=== PATIENT | female | born 1955 ===

== ENCOUNTER 2017-04-22 06:32 | Day surgery (SDC) | payer OTHER ==
[2017-04-22] MEDS ORDERED: Lactated Ringer's 1,000 ML IV ONE ×2 (07:47)
[2017-04-22] MEDS ORDERED: Propofol 10 mg/ml Inj (20 ML) ONE (08:00)
[2017-04-22] MEDS ORDERED: MethylPREDNISolone Depo 40 mg/ml Inj ONE (08:45)
[2017-04-22] MEDS ORDERED: Bupivacaine HCl 0.25% PF (10 ml) Inj ONE (08:45)
[2017-04-22] MEDS ORDERED: Iohexol 240 (50 ml) ONE (08:45)
[2017-04-22] MEDS ORDERED: Oxycodone/Acetaminophen 5/325 mg Tab PO ONE (11:00)
[2017-04-22 12:25] VITALS: BP 102/69; PULSE 79; RESP 18; TEMP 97.4; O2SAT 99
--- NOTE | 2017-04-22 17:17 | RAD ---
PROCEDURE: Intraoperative Fluoroscopy. HISTORY: SI JOINT INJECTION FINDINGS: Fluoroscopic assistance was provided for sacroiliac joint injection. fluoroscopic time (continuous mode) utilized during the procedure: 18.5 seconds
== END 2017-04-22 10:53 | disposition home or self-care (01) ==
LOC: C.SDS 06:32
PROVIDERS: ATTEND Anesthesiology Pain Medicine
DX: M46.1 Sacroiliitis, not elsewhere classified (principal); M53.3 Sacrococcygeal disorders, not elsewhere classified
CPT/HCPCS: 27096; J1030; J2704; J7120; Q9966

== ENCOUNTER 2017-07-15 06:16 | Day surgery (SDC) | payer OTHER ==
[2017-07-15] MEDS ORDERED: Propofol 10 mg/ml Inj (20 ML) ONE (08:02)
[2017-07-15] MEDS ORDERED: Midazolam 2 MG/2 ML VIAL ONE (08:02)
[2017-07-15] MEDS ORDERED: Bupivacaine HCl 0.25% PF (10 ml) Inj ONE (08:06)
[2017-07-15] MEDS ORDERED: Lidocaine Hydrochloride 5 ML INJ ONE (08:07)
[2017-07-15] MEDS: MethylPREDNISolone Depo 40 mg/ml Inj ONE ×2 (08:35→08:43)
[2017-07-15] MEDS ORDERED: Lactated Ringer's 1,000 ML IV ONE (08:45)
[2017-07-15] MEDS ORDERED: Iohexol 240 (50 ml) ONE (08:51)
[2017-07-15 09:14] VITALS: O2SAT 97
[2017-07-15 11:37] VITALS: BP 94/55; PULSE 85; RESP 16; TEMP 97.7
--- NOTE | 2017-07-15 15:26 | RAD ---
PROCEDURE: Fluoroscopy over 1 hour HISTORY: SACROILLITIS COMPARISON: None TECHNIQUE: Standard protocol for this study/examination. FINDINGS: Total fluoroscopic time (continuous mode) utilized during the procedure: 20.0 seconds. IMPRESSION: Total exam DLP: 0.06 mGy per meters squared
--- NOTE | 2017-07-16 07:45 | OP ---
PROCEDURE DATE: 07/15/2017 PREOPERATIVE DIAGNOSIS: Sacroiliitis. POSTOPERATIVE DIAGNOSIS: Sacroiliitis. PROCEDURE: Right sacroiliac joint injection under fluoroscopic guidance. ANESTHESIA: Local MAC sedation. SURGEON: Caroline Calhoun MD COMPLICATIONS: None. BLOOD LOSS: 1 mL. 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 The patient came here today for sacroiliac joint and intra-articular steroid injection under fluoroscopic guidance. PROCEDURE IN DETAIL: informed consent for the procedure, risks and benefits were explained. The patient was brought back to the procedure room, placed in prone position, routine monitors were applied. The patient was prepped and draped in sterile fashion. The patient's sacroiliac joint was imaged using fluoroscopy. A 27-gauge needle was used to inject lidocaine 1% subcutaneously at the inferomedial sacral joint line. Subsequently, a 22-gauge 3.5- inch spinal needle was advanced into the sacroiliac joint. Omnipaque dye, 1 mL, was injected showing good intra-articular spread. Subsequently, Depo-Medrol 40 mg mixed with 3 mL of preservative-free lidocaine 1% was injected with intermittent aspiration. No heme or CSF was aspirated throughout. No paresthesias were elicited throughout. The patient tolerated the procedure well. Vital signs remained stable. The patient reported reduction in sacroiliac joint pain postprocedure. DISPOSITION: The patient was given instructions to follow up in 2 weeks and discharged to postop area in stable condition. No events or complications. Caroline Calhoun MD
== END 2017-07-15 10:37 | disposition home or self-care (01) ==
LOC: C.SDS 06:16
PROVIDERS: ATTEND Anesthesiology Pain Medicine
DX: M46.1 Sacroiliitis, not elsewhere classified (principal)
CPT/HCPCS: 27096; J1030; J2250; J2704; J3010; J7120

== ENCOUNTER 2017-09-09 09:17 | Day surgery (SDC) | payer OTHER ==
[2017-09-08 09:18] VITALS: BMI 37.8
[~2017-09-09 09:17] MED LIST: Iohexol 240 (50 ml) ONE; Lidocaine Hydrochloride 5 ML INJ ONE
[2017-09-09] MEDS: Bupivacaine HCl 0.25% PF (10 ml) Inj ONE ×2 (10:38→11:13)
[2017-09-09] MEDS: MethylPREDNISolone Depo 40 mg/ml Inj ONE ×2 (10:39→11:13)
[2017-09-09] MEDS ORDERED: Propofol 10 mg/ml Inj (20 ML) ONE (11:07)
[2017-09-09] MEDS ORDERED: HYDROmorphone 0.5 mg/0.5 ml ISec IVP PRN (11:30)
--- NOTE | 2017-09-09 13:15 | OP ---
PREOPERATIVE DIAGNOSES: 1. Lumbar spondylosis without myelopathy. 2. Myalgias. POSTOPERATIVE DIAGNOSES: 1. Lumbar spondylosis without myelopathy. 2. Myalgias. PROCEDURE: 1. L3-L4, L4-L5, and L5-S1 bilateral medial branch blocks. 2. Trigger point injections. X-RAY: [id number], fluoroscopy of the spine. ANESTHESIA: MAC/local. SURGEON: Caroline Calhoun MD COMPLICATIONS: None. BLOOD LOSS: 2 mL. INDICATION: On physical exam, this patient's pain was made worse by side bending toward the affected side or extending the spine (backward bending). The patient's back will generally feel stiff in the morning, and prolonged inactivity such as sitting, standing for prolonged periods causes the axial pain to refer to the mid lower back. This pain is intractable and unresponsive to conservative management. The pain is adversely affecting quality of life and activities of daily living. TECHNIQUE: After comprehensive informed consent was obtained, the risks of the procedure explained and questions answered. The patient was placed prone on the operating table in a comfortable position. Confirmation of the procedure to be performed was obtained from the patient. The skin overlying the area to be injected was confirmed and cleaned in a strict sterile fashion using chlorhexidine. Sterile drape was placed around the area to be injected. The area to be injected was superficially anesthetized with 1 mL of 1% lidocaine using a 27-gauge, 1.25-inch needle at each level noted above. Under fluoroscopic guidance, a curved 22-gauge, 3.5-inch spinal needle was advanced until the tip of the needle was ventro-medial to position the tip adjacent to the articular pillar, in contact with bone midway between the zygapophyseal joints above and below. The patient experienced no paresthesia during needle placement. The bone was contacted, and the C-arm was rotated laterally to confirm proper needle placement. The patient experienced no paresthesias in the upper extremities during needle placement. After negative aspiration for blood, 0.5 mL of non-ionic contrast was injected to outline the medial branch nerve. Then, 1 mL of a mixture of 0.25% Marcaine and 80 mg of Depo-Medrol was slowly injected at each level. The needle was removed, and a Band-Aid was placed over the puncture site. The fluoroscopic image was stored for the medical record. Trigger Point Injections: A 27-gauge needle was used to inject trigger piont areas in paralumbar muscles, parathoracic muscles, and upper gluteal muscles. Needle was redirected to sciatic nerve branches. Total volume of 12 mL of 0.25% Marcaine mixed with 40 mg Kenalog. Intermittent aspiration was done throughout with no heme or CSF aspirated throughout. Patient tolerated procedure well. ASSESSMENT: Upon discharge, the patient noted more than 80% relief in the affected painful area. The patient was given a pain diary to utilize over the next 4 hours while performing activities that are normally aggravating. This will provide a quantitative value of how much of the pain is related to osteoarthritis of the facets. The patient understands that this block is diagnostic and temporary. If there is significant pain relief during the next 4 hours, we will schedule for radiofrequency ablation of the offending pain fibers around the affected facet joints to help provide long-term relief. DISPOSITION: Patient was given instructions to follow up in two weeks and was discharged in stable condition. No events or complications. Caroline Calhoun MD
--- NOTE | 2017-09-09 15:06 | RAD ---
PROCEDURE: Intraoperative Fluoroscopy. HISTORY: LUMBAR RADICULOPATHY FINDINGS: Fluoroscopic assistance was provided for lumbar facet injection at the L4-5 and L5-S1 levels. Please refer to the operative report from [facility].
[2017-09-09 16:27] VITALS: TEMP 97.3
[2017-09-09 16:28] VITALS: BP 90/50; PULSE 72; RESP 16; O2SAT 97
== END 2017-09-09 12:50 | disposition home or self-care (01) ==
LOC: C.SDS 09:17
PROVIDERS: ATTEND Anesthesiology Pain Medicine
DX: M47.816 Spondylosis without myelopathy or radiculopathy, lumbar region (principal)
CPT/HCPCS: 20553; 64493; 64494; 64495; J1030; J2704

== ENCOUNTER 2018-04-28 08:40 | Day surgery (SDC) | payer MEDICAID, OTHER ==
[2017-09-08 09:18] VITALS: BMI 37.8
[~2018-04-28 08:40] MED LIST changes: +Bupivacaine 0.75% Inj(30mL) ONE; -Lidocaine Hydrochloride 5 ML INJ ONE; +MethylPREDNISolone Depo 40 mg/ml Inj ONE
[2018-04-28] MEDS ORDERED: Iohexol 240 (50 ml) ONE (11:21)
[2018-04-28] MEDS ORDERED: Midazolam 2 MG/2 ML VIAL ONE (11:23)
[2018-04-28] MEDS ORDERED: MethylPREDNISolone Depo 40 mg/ml Inj ONE (11:32)
[2018-04-28 12:16] VITALS: BP 103/63; RESP 18
[2018-04-28 12:17] VITALS: PULSE 81; TEMP 97; O2SAT 99
--- NOTE | 2018-04-28 14:10 | RAD ---
Date of service: 04/28/2018 PROCEDURE: Intraoperative Fluoroscopy. HISTORY: CERVICAL RADICULOPATHY FINDINGS: Fluoroscopic assistance was provided for pain management cervical region. Please refer to the operative report from [facility]. Total fluoroscopic time (continuous mode) utilized during the procedure 6.7 seconds. Total exam DLP: 0.74 (mGy).
--- NOTE | 2018-04-29 06:49 | OP ---
PROCEDURE DATE: 04/28/2018 PREOPERATIVE DIAGNOSES: 1. Cervical radiculopathy. 2. Cervical disc displacement without myopathy. 3. Myalgias. POSTOPERATIVE DIAGNOSES: 1. Cervical radiculopathy. 2. Cervical disc displacement without myopathy. 3. Myalgias. PROCEDURE: 1. Cervical epidural steroid injection, C6-C7. 2. Epidurogram. 3. Trigger point injections. X-RAY: [id number], fluoroscopy of the spine. ANESTHESIA: MAC/local. SURGEON: Caroline Calhoun MD COMPLICATIONS: None. BLOOD LOSS: 2 mL. BRIEF HISTORY AND INDICATIONS: The patient has cervical radiculopathy and upper extremity pain and tingling radiating down from the posterior neck down to the arm and posterior shoulder side to all fingers. This patient presents today for a cervical epidural steroid injection under fluoroscopic guidance at the C6-C7 interlaminar space. PROCEDURE IN DETAIL: The patient, after giving informed consent for the procedure, was brought back to the procedure room, sitting in a wheelchair. Routine monitors were applied. The patient was leant forward with his neck flexed and forehead placed on a towel on the OR table. Neck was flexed at approximately 50 degrees lateral. Lateral fluoroscopic view was obtained at the C6-C7 levels. The patient was prepped and draped in a sterile fashion. A 27-gauge needle was used to inject lidocaine 1% subcutaneously over the skin overlying the interlaminar space of C6-C7. Subsequently, a 22-gauge Tuohy needle was used to advance into the C6-C7 interlaminar area using loss of resistance technique to enter the epidural space. The needle position was confirmed in lateral views. Contrast 180 Omnipaque was injected 0.5 mL showing good epidurogram. Subsequently, 80 mg of Depo-Medrol with 1 mL of normal saline was injected with intermittent negative aspiration. No heme or CSF was aspirated throughout. No paresthesias were elicited throughout. The patient tolerated the procedure well. Vital signs remained stable. The patient reported slight reduction in pain post procedure. Epidurogram: The patient underwent cervical epidural steroid injection today. The epidural was observed at the level of C6-C7 under AP and lateral fluoroscopic guidance. 2 mL of Omnipaque 200 contrast was injected that evenly spread from level C4 to C7 level with posterior-anterior dye spread bilaterally at level of C6-C7 and C5-C6. There appeared to be a moderate degree spondylosis at the level of C5-C6 and moderate degree of spondylosis at the level of C6-C7 with disc protrusion at the level of C6-C7. The intervertebral disc height at the level of C5-C6 was slightly less than normal and intervertebral disc height at the level of C7-T1 was well maintained. The neural foramen appeared to be patent. Conclusion: Good epidural dye containment from C6-C7 with intervertebral disc protrusion at the level of C5-C6, C6-C7, maintaining less than normal intervertebral disc height at level C5-C6. Spondylosis noted at the level of C4 through T1. Copies of the images are on file. Trigger Point Injections/Greater and Lesser Occipital Nerve Blocks: Tender to palpation on cervical areas and pain shooting up posterior head. Patient signed informed consent. Cervical area was prepped and draped in sterile fashion. A 25-gauge needle was used to inject trigger point areas in trapezius muscles, paracervical muscles, and rhomboids bilaterally. The greater and lesser occipital nerves were also injected bilaterally by inserting needle 1 cm lateral and inferior to the posterior occipital protuberance. Total volume used was 10 mL of 0.25% Marcaine mixed with 40 mg Kenalog. Intermittent aspiration was done throughout with no heme or CSF aspirated throughout. Patient tolerated procedure well. DISPOSITION: Patient was taken to the recovery room in stable condition. Patient was given instructions to follow up in two weeks and was discharged in stable condition. No events or complications. Caroline Calhoun MD
== END 2018-04-28 12:37 | disposition home or self-care (01) ==
LOC: C.SDS 08:40
PROVIDERS: ATTEND Anesthesiology Pain Medicine
DX: M50.123 Cervical disc disorder at C6-C7 level with radiculopathy (principal); M79.10 Myalgia, unspecified site
CPT/HCPCS: 62321; J1030; J2250; J3010; Q9966